=== PATIENT | male | born 1965 | race Asian ===

== ENCOUNTER → 2019-07-27 | Outpatient (CLI) | payer OTHER ==
[2019-07-27 12:31] LABS: INR 3.2; PROTHROMBIN TIME 32.7 SECONDS (11.8-14.0)
== END ==
LOC: M WUC 09:29
DX: Z95.2 Presence of prosthetic heart valve (principal)

== ENCOUNTER → 2019-08-25 | Outpatient (CLI) | payer OTHER ==
[2019-08-25 12:47] LABS: INR 3.08; PROTHROMBIN TIME 31.7 SECONDS (11.8-14.0)
== END ==
LOC: M WUC 09:33
PROVIDERS: ATTEND Student in an Organized Health Care Education/Training Program
DX: Z95.2 Presence of prosthetic heart valve (principal)

== ENCOUNTER → 2019-09-26 | Outpatient (CLI) | payer OTHER ==
[2019-09-26 10:40] LABS: INR 2.97; PROTHROMBIN TIME 30.8 SECONDS (11.8-14.0)
== END ==
LOC: M WUC 08:05
PROVIDERS: ATTEND Student in an Organized Health Care Education/Training Program
DX: Z95.2 Presence of prosthetic heart valve (principal)

== ENCOUNTER → 2019-10-27 | Outpatient (CLI) | payer OTHER ==
[2019-10-27 09:46] LABS: INR 3.54; PROTHROMBIN TIME 35.5 SECONDS (11.8-14.0)
== END ==
LOC: M WUC 08:21
PROVIDERS: ATTEND Student in an Organized Health Care Education/Training Program
DX: Z95.2 Presence of prosthetic heart valve (principal)

== ENCOUNTER → 2019-11-23 | Outpatient (CLI) | payer OTHER ==
[2019-11-23 10:46] LABS: INR 3.24; PROTHROMBIN TIME 33.8 SECONDS (11.8-14.0)
== END ==
LOC: M WUC 08:24
PROVIDERS: ATTEND Student in an Organized Health Care Education/Training Program
DX: Z95.2 Presence of prosthetic heart valve (principal)

== ENCOUNTER → 2019-12-25 | Outpatient (CLI) | payer OTHER ==
[2019-12-25 15:00] LABS: INR 3.27
== END ==
LOC: M WUC 09:03
PROVIDERS: ATTEND Student in an Organized Health Care Education/Training Program
DX: Z95.2 Presence of prosthetic heart valve (principal)

== ENCOUNTER → 2020-01-23 | Outpatient (CLI) | payer OTHER ==
[2020-01-23 14:38] LABS: INR 3.29; PROTHROMBIN TIME 34.2 SECONDS (12.5-14.3)
== END ==
LOC: M WUC 09:12
PROVIDERS: ATTEND Student in an Organized Health Care Education/Training Program
DX: Z95.2 Presence of prosthetic heart valve (principal)

== ENCOUNTER → 2020-02-27 | Outpatient (CLI) | payer OTHER ==
[2020-02-27 10:26] LABS: INR 2.38; PROTHROMBIN TIME 26.5 SECONDS (12.5-14.3)
== END ==
LOC: M WUC 08:28
PROVIDERS: ATTEND Student in an Organized Health Care Education/Training Program
DX: Z95.2 Presence of prosthetic heart valve (principal)

== ENCOUNTER → 2020-03-06 | Outpatient (CLI) | payer OTHER ==
[2020-03-06 16:53] LABS: INR 2.71; PROTHROMBIN TIME 29.4 SECONDS (12.5-14.3)
== END ==
LOC: M WUC 11:52
PROVIDERS: ATTEND Student in an Organized Health Care Education/Training Program
DX: Z95.2 Presence of prosthetic heart valve (principal)

== ENCOUNTER → 2020-04-23 | Outpatient (CLI) | payer OTHER ==
[2020-04-23 12:26] LABS: INR 2.93; PROTHROMBIN TIME 31.3 SECONDS (12.5-14.3)
== END ==
LOC: M WUC 09:28
PROVIDERS: ATTEND Student in an Organized Health Care Education/Training Program
DX: Z95.2 Presence of prosthetic heart valve (principal)

== ENCOUNTER → 2020-05-24 | Outpatient (CLI) | payer OTHER ==
[2020-05-24 10:46] LABS: INR 2.56; PROTHROMBIN TIME 28.1 SECONDS (12.5-14.3)
== END ==
LOC: M WUC 08:36
PROVIDERS: ATTEND Student in an Organized Health Care Education/Training Program
DX: Z95.2 Presence of prosthetic heart valve (principal)

== ENCOUNTER → 2020-06-21 | Outpatient (CLI) | payer OTHER ==
[2020-06-21 12:03] LABS: INR 3.19; PROTHROMBIN TIME 33.4 SECONDS (12.5-14.3)
== END ==
LOC: M WUC 08:56
PROVIDERS: ATTEND Student in an Organized Health Care Education/Training Program
DX: Z95.2 Presence of prosthetic heart valve (principal)

== ENCOUNTER → 2020-07-19 | Outpatient (CLI) | payer OTHER ==
[2020-07-19 14:29] LABS: INR 3.21; PROTHROMBIN TIME 33.6 SECONDS (12.5-14.3)
== END ==
LOC: M WUC 08:59
PROVIDERS: ATTEND Student in an Organized Health Care Education/Training Program
DX: Z51.81 Encounter for therapeutic drug level monitoring (principal); Z95.2 Presence of prosthetic heart valve

== ENCOUNTER → 2020-08-20 | Outpatient (REF) | payer OTHER ==
[2020-08-20 11:59] LABS: INR 2.96; PROTHROMBIN TIME 31.5 SECONDS (12.5-14.3)
== END ==
LOC: M LAB REF 11:13 → M WUC 11:13
PROVIDERS: ATTEND Student in an Organized Health Care Education/Training Program
DX: Z95.2 Presence of prosthetic heart valve (principal)

== ENCOUNTER → 2020-09-17 | Outpatient (CLI) | payer OTHER ==
[2020-09-17 11:08] LABS: INR 1.77
== END ==
LOC: M WUC 09:12
PROVIDERS: ATTEND Student in an Organized Health Care Education/Training Program
DX: Z95.2 Presence of prosthetic heart valve (principal)

== ENCOUNTER → 2020-09-25 | Outpatient (CLI) | payer OTHER ==
[2020-09-25 11:57] LABS: INR 3.1; PROTHROMBIN TIME 32.7 SECONDS (12.5-14.3)
== END ==
LOC: M WUC 09:04
PROVIDERS: ATTEND Student in an Organized Health Care Education/Training Program
DX: Z95.2 Presence of prosthetic heart valve (principal)

== ENCOUNTER → 2020-10-10 | Outpatient (CLI) | payer OTHER ==
[2020-10-10 10:05] LABS: PROTHROMBIN TIME 31.8 SECONDS (12.5-14.3)
== END ==
LOC: M WUC 08:07
PROVIDERS: ATTEND Student in an Organized Health Care Education/Training Program
DX: Z95.2 Presence of prosthetic heart valve (principal)

== ENCOUNTER → 2020-11-06 | Outpatient (CLI) | payer OTHER ==
[2020-11-06 13:37] LABS: INR 2.83; PROTHROMBIN TIME 30.1 SECONDS (12.7-14.5)
== END ==
LOC: M WUC 09:19
PROVIDERS: ATTEND Student in an Organized Health Care Education/Training Program
DX: Z95.2 Presence of prosthetic heart valve (principal)

== ENCOUNTER → 2020-12-04 | Outpatient (CLI) | payer OTHER ==
[2020-12-04 12:34] LABS: INR 4.06; PROTHROMBIN TIME 39.7 SECONDS (12.7-14.5)
== END ==
LOC: M WUC 08:58
PROVIDERS: ATTEND Student in an Organized Health Care Education/Training Program
DX: Z95.2 Presence of prosthetic heart valve (principal)

== ENCOUNTER → 2020-12-07 | Outpatient (CLI) | payer OTHER ==
[2020-12-07 11:32] LABS: INR 4.85; PROTHROMBIN TIME 45.4 SECONDS (12.7-14.5)
== END ==
LOC: M WUC 09:12
PROVIDERS: ATTEND Student in an Organized Health Care Education/Training Program
DX: Z95.2 Presence of prosthetic heart valve (principal)

== ENCOUNTER → 2020-12-13 | Outpatient (CLI) | payer OTHER ==
[2020-12-13 11:52] LABS: INR 2.75; PROTHROMBIN TIME 29.4 SECONDS (12.7-14.5)
== END ==
LOC: M WUC 08:45
PROVIDERS: ATTEND Student in an Organized Health Care Education/Training Program
DX: Z95.2 Presence of prosthetic heart valve (principal)

== ENCOUNTER → 2020-12-27 | Outpatient (REF) | payer OTHER ==
[2020-12-27 12:58] LABS: INR 2.9; PROTHROMBIN TIME 30.6 SECONDS (12.7-14.5)
== END ==
LOC: M WUC 11:55
PROVIDERS: ATTEND Student in an Organized Health Care Education/Training Program
DX: Z95.2 Presence of prosthetic heart valve (principal)

== ENCOUNTER → 2021-01-24 | Outpatient (CLI) | payer OTHER ==
[2021-01-24 11:29] LABS: INR 2.85; PROTHROMBIN TIME 30.3 SECONDS (12.7-14.5)
== END ==
LOC: M WUC 09:19
PROVIDERS: ATTEND Student in an Organized Health Care Education/Training Program
DX: Z95.2 Presence of prosthetic heart valve (principal)

== ENCOUNTER → 2021-02-21 | Outpatient (CLI) | payer OTHER ==
[2021-02-21 11:02] LABS: INR 3.26; PROTHROMBIN TIME 33.6 SECONDS (12.7-14.5)
== END ==
LOC: M WUC 09:18
PROVIDERS: ATTEND Student in an Organized Health Care Education/Training Program
DX: Z95.2 Presence of prosthetic heart valve (principal)

== ENCOUNTER → 2021-03-19 | Outpatient (CLI) | payer OTHER ==
[2021-03-19 12:27] LABS: INR 3.06; PROTHROMBIN TIME 31.9 SECONDS (12.7-14.5)
== END ==
LOC: M WUC 09:18
PROVIDERS: ATTEND Student in an Organized Health Care Education/Training Program
DX: Z95.2 Presence of prosthetic heart valve (principal)

== ENCOUNTER → 2021-04-16 | Outpatient (CLI) | payer OTHER ==
[2021-04-16 17:09] LABS: INR 2.41; PROTHROMBIN TIME 26.6 SECONDS (12.7-14.5)
== END ==
LOC: M WUC 13:22
DX: Z95.2 Presence of prosthetic heart valve (principal)

== ENCOUNTER → 2021-05-02 | Outpatient (CLI) | payer OTHER ==
[2021-05-02 11:53] LABS: INR 3.27; PROTHROMBIN TIME 33.6 SECONDS (12.7-14.5)
== END ==
LOC: M WUC 09:03
PROVIDERS: ATTEND Internal Medicine
DX: Z95.2 Presence of prosthetic heart valve (principal)

== ENCOUNTER → 2021-06-27 | Outpatient (CLI) | payer OTHER ==
[2021-06-27 13:04] LABS: INR 2.6; PROTHROMBIN TIME 28.2 SECONDS (12.7-14.5)
== END ==
LOC: M WUC 09:40
PROVIDERS: ATTEND Internal Medicine
DX: Z95.2 Presence of prosthetic heart valve (principal)

== ENCOUNTER → 2021-07-25 | Outpatient (CLI) | payer OTHER ==
[2021-07-25 12:46] LABS: INR 2.24; PROTHROMBIN TIME 25.2 SECONDS (12.7-14.5)
== END ==
LOC: M WUC 09:20
PROVIDERS: ATTEND Internal Medicine
DX: Z95.2 Presence of prosthetic heart valve (principal)

== ENCOUNTER → 2021-08-01 | Outpatient (CLI) | payer OTHER ==
[2021-08-01 12:55] LABS: INR 2.98; PROTHROMBIN TIME 31.3 SECONDS (12.7-14.5)
== END ==
LOC: M WUC 09:55
PROVIDERS: ATTEND Internal Medicine
DX: Z95.2 Presence of prosthetic heart valve (principal)

== ENCOUNTER → 2021-08-15 | Outpatient (CLI) | payer OTHER ==
[2021-08-15 10:27] LABS: INR 2.58
== END ==
LOC: M WUC 08:55
PROVIDERS: ATTEND Internal Medicine
DX: Z95.2 Presence of prosthetic heart valve (principal)

== ENCOUNTER → 2021-09-11 | Outpatient (CLI) | payer OTHER ==
[2021-09-11 10:05] LABS: INR 2.82
== END ==
LOC: M WUC 08:14
PROVIDERS: ATTEND Internal Medicine
DX: Z95.2 Presence of prosthetic heart valve (principal)

== ENCOUNTER → 2021-10-09 | Outpatient (CLI) | payer OTHER ==
[2021-10-09 12:52] LABS: INR 3.03; PROTHROMBIN TIME 31.7 SECONDS (12.7-14.5)
== END ==
LOC: M WUC 08:51
PROVIDERS: ATTEND Internal Medicine
DX: Z95.2 Presence of prosthetic heart valve (principal)

== ENCOUNTER → 2021-11-06 | Outpatient (CLI) | payer OTHER ==
[2021-11-06 10:47] LABS: INR 3.57
== END ==
LOC: M WUC 08:28
PROVIDERS: ATTEND Internal Medicine
DX: Z95.2 Presence of prosthetic heart valve (principal)

== ENCOUNTER → 2021-12-04 | Outpatient (CLI) | payer OTHER ==
[2021-12-04 13:43] LABS: PROTHROMBIN TIME 49.1 SECONDS (12.7-14.5)
[2021-12-04 15:43] LABS: INR 5.38
== END ==
LOC: M WUC 08:58
PROVIDERS: ATTEND Internal Medicine
DX: Z95.2 Presence of prosthetic heart valve (principal)

== ENCOUNTER → 2021-12-08 | Outpatient (CLI) | payer OTHER ==
[2021-12-08 11:07] LABS: INR 1.34
== END ==
LOC: M LAB 10:06
PROVIDERS: ATTEND Internal Medicine
DX: Z95.2 Presence of prosthetic heart valve (principal)

== ENCOUNTER → 2021-12-12 | Outpatient (CLI) | payer OTHER ==
[2021-12-12 13:32] LABS: INR 2.25; PROTHROMBIN TIME 25.3 SECONDS (12.7-14.5)
== END ==
LOC: M WUC 09:00
PROVIDERS: ATTEND Internal Medicine
DX: Z95.2 Presence of prosthetic heart valve (principal)

== ENCOUNTER → 2021-12-20 | Outpatient (REF) | payer OTHER ==
[2021-12-20 13:47] LABS: INR 2.73; PROTHROMBIN TIME 29.3 SECONDS (12.7-14.5)
== END ==
LOC: M LABWUC 12:12
PROVIDERS: ATTEND Internal Medicine
DX: Z95.2 Presence of prosthetic heart valve (principal)

== ENCOUNTER → 2022-01-02 | Outpatient (CLI) | payer OTHER ==
[2022-01-02 12:41] LABS: INR 2.87; PROTHROMBIN TIME 30.4 SECONDS (12.7-14.5)
== END ==
LOC: M WUC 09:23
PROVIDERS: ATTEND Internal Medicine
DX: Z95.2 Presence of prosthetic heart valve (principal)

== ENCOUNTER → 2022-01-30 | Outpatient (CLI) | payer OTHER ==
[2022-01-30 14:14] LABS: INR 3.16; PROTHROMBIN TIME 32.9 SECONDS (12.5-14.5)
== END ==
LOC: M WUC 08:52
PROVIDERS: ATTEND Internal Medicine
DX: Z95.2 Presence of prosthetic heart valve (principal)

== ENCOUNTER → 2022-02-25 | Outpatient (REF) | payer OTHER ==
[2022-02-25 12:44] LABS: INR 2.64; PROTHROMBIN TIME 28.6 SECONDS (12.5-14.5)
== END ==
LOC: M WUC 09:36
PROVIDERS: ATTEND Internal Medicine
DX: Z95.2 Presence of prosthetic heart valve (principal)

== ENCOUNTER → 2022-03-25 | Outpatient (CLI) | payer OTHER ==
[2022-03-25 13:09] LABS: INR 3.52; PROTHROMBIN TIME 35.8 SECONDS (12.5-14.5)
== END ==
LOC: M WUC 09:25
PROVIDERS: ATTEND Internal Medicine
DX: Z95.2 Presence of prosthetic heart valve (principal)

== ENCOUNTER → 2022-04-22 | Outpatient (CLI) | payer OTHER ==
[2022-04-22 13:29] LABS: INR 3.11; PROTHROMBIN TIME 32.5 SECONDS (12.5-14.5)
== END ==
LOC: M WUC 09:06
PROVIDERS: ATTEND Internal Medicine
DX: Z95.2 Presence of prosthetic heart valve (principal)

== ENCOUNTER → 2022-05-20 | Outpatient (CLI) | payer OTHER ==
[2022-05-20 13:31] LABS: INR 2.59; PROTHROMBIN TIME 28.2 SECONDS (12.5-14.5)
== END ==
LOC: M WUC 09:24
PROVIDERS: ATTEND Internal Medicine
DX: Z95.2 Presence of prosthetic heart valve (principal)

== ENCOUNTER → 2022-06-17 | Outpatient (REF) | payer OTHER ==
[2022-06-17 17:10] LABS: INR 2.38; PROTHROMBIN TIME 26.4 SECONDS (12.5-14.5)
== END ==
LOC: M LAB REF 16:12
PROVIDERS: ATTEND Internal Medicine
DX: Z95.2 Presence of prosthetic heart valve (principal)

== ENCOUNTER → 2022-06-24 | Outpatient (CLI) | payer OTHER ==
[2022-06-24 12:52] LABS: INR 2.19; PROTHROMBIN TIME 24.7 SECONDS (12.5-14.5)
== END ==
LOC: M WUC 09:03
PROVIDERS: ATTEND Internal Medicine
DX: Z95.2 Presence of prosthetic heart valve (principal)

== ENCOUNTER → 2022-07-01 | Outpatient (CLI) | payer OTHER ==
[2022-07-01 13:22] LABS: INR 3.01; PROTHROMBIN TIME 31.7 SECONDS (12.5-14.5)
== END ==
LOC: M WUC 10:26
PROVIDERS: ATTEND Internal Medicine
DX: Z95.2 Presence of prosthetic heart valve (principal)

== ENCOUNTER → 2022-07-09 | Outpatient (CLI) | payer OTHER ==
[2022-07-09 17:28] LABS: INR 3.15; PROTHROMBIN TIME 32.8 SECONDS (12.5-14.5)
== END ==
LOC: M WUC 11:53
PROVIDERS: ATTEND Internal Medicine
DX: Z95.2 Presence of prosthetic heart valve (principal)

== ENCOUNTER → 2022-07-31 | Outpatient (REF) | payer OTHER ==
[2022-07-31 10:20] LABS: INR 2.77; PROTHROMBIN TIME 29.7 SECONDS (12.5-14.5)
== END ==
LOC: M LABWUC 09:41
PROVIDERS: ATTEND Internal Medicine
DX: Z95.2 Presence of prosthetic heart valve (principal)

== ENCOUNTER → 2022-08-28 | Outpatient (REF) | payer OTHER ==
[2022-08-28 13:30] LABS: INR 2.43; PROTHROMBIN TIME 26.8 SECONDS (12.5-14.5)
== END ==
LOC: M LABWUC 12:57
PROVIDERS: ATTEND Internal Medicine
DX: Z95.2 Presence of prosthetic heart valve (principal)

== ENCOUNTER → 2022-09-04 | Outpatient (CLI) | payer OTHER ==
[2022-09-04 12:44] LABS: INR 2.69
== END ==
LOC: M WUC 08:53
PROVIDERS: ATTEND Internal Medicine
DX: Z95.2 Presence of prosthetic heart valve (principal)

== ENCOUNTER → 2022-09-18 | Outpatient (CLI) | payer OTHER ==
[2022-09-18 11:58] LABS: INR 2.87; PROTHROMBIN TIME 30.5 SECONDS (12.5-14.5)
== END ==
LOC: M WUC 09:37
PROVIDERS: ATTEND Internal Medicine
DX: Z95.2 Presence of prosthetic heart valve (principal)

== ENCOUNTER → 2022-10-16 | Outpatient (CLI) | payer OTHER ==
[2022-10-16 11:07] LABS: INR 3.62; PROTHROMBIN TIME 36.6 SECONDS (12.5-14.5)
== END ==
LOC: M WUC 08:31
PROVIDERS: ATTEND Internal Medicine
DX: Z95.2 Presence of prosthetic heart valve (principal)

== ENCOUNTER → 2022-11-20 | Outpatient (REF) | payer OTHER ==
[2022-11-20 13:21] LABS: INR 3.94; PROTHROMBIN TIME 37.7 SECONDS (12.5-14.5)
== END ==
LOC: M WUC 12:15 → M LAB REF 12:15
PROVIDERS: ATTEND Internal Medicine
DX: Z95.2 Presence of prosthetic heart valve (principal)

== ENCOUNTER → 2022-11-27 | Outpatient (REF) | payer OTHER ==
[2022-11-27 11:38] LABS: INR 3.87; PROTHROMBIN TIME 37.1 SECONDS (12.5-14.5)
== END ==
LOC: M WUC 11:04
PROVIDERS: ATTEND Internal Medicine
DX: Z95.2 Presence of prosthetic heart valve (principal)

== ENCOUNTER → 2022-12-04 | Outpatient (REF) | payer OTHER ==
[2022-12-04 11:36] LABS: INR 2.7
== END ==
LOC: M LABWUC 09:59
PROVIDERS: ATTEND Internal Medicine
DX: Z95.2 Presence of prosthetic heart valve (principal)

== ENCOUNTER → 2022-12-11 | Outpatient (CLI) | payer OTHER ==
[2022-12-11 13:08] LABS: INR 2.95
== END ==
LOC: M WUC 08:54
PROVIDERS: ATTEND Internal Medicine
DX: Z95.2 Presence of prosthetic heart valve (principal)

== ENCOUNTER → 2022-12-25 | Outpatient (REF) | payer OTHER ==
[2022-12-25 12:34] LABS: INR 3.31; PROTHROMBIN TIME 32.8 SECONDS (12.5-14.5)
== END ==
LOC: M LABWUC 11:31
PROVIDERS: ATTEND Internal Medicine
DX: Z95.2 Presence of prosthetic heart valve (principal)

== ENCOUNTER → 2023-01-22 | Outpatient (REF) | payer OTHER ==
[2023-01-22 14:55] LABS: INR 3.77; PROTHROMBIN TIME 36.4 SECONDS (12.5-14.5)
== END ==
LOC: M LABWUC 13:14
PROVIDERS: ATTEND Internal Medicine
DX: Z95.2 Presence of prosthetic heart valve (principal)

== ENCOUNTER → 2023-01-29 | Outpatient (REF) | payer OTHER ==
[2023-01-29 12:59] LABS: INR 2.45
== END ==
LOC: M WUC 10:41
PROVIDERS: ATTEND Internal Medicine
DX: Z95.2 Presence of prosthetic heart valve (principal)

== ENCOUNTER → 2023-02-09 | Outpatient (REF) | payer OTHER ==
[2023-02-09 12:38] LABS: INR 2.98; PROTHROMBIN TIME 29.9 SECONDS (12.5-14.5)
== END ==
LOC: M WUC 11:43
PROVIDERS: ATTEND Internal Medicine
DX: Z95.2 Presence of prosthetic heart valve (principal)

== ENCOUNTER → 2023-02-24 | Outpatient (REF) | payer OTHER ==
[2023-02-24 16:13] LABS: INR 2.29; PROTHROMBIN TIME 24.4 SECONDS (12.5-14.5)
== END ==
LOC: M WUC 15:26
PROVIDERS: ATTEND Internal Medicine
DX: Z95.2 Presence of prosthetic heart valve (principal)

== ENCOUNTER → 2023-03-10 | Outpatient (REF) | payer OTHER ==
[2023-03-10 17:12] LABS: INR 3.27; PROTHROMBIN TIME 32.1 SECONDS (12.5-14.5)
== END ==
LOC: M LABWUC 16:23
PROVIDERS: ATTEND Student in an Organized Health Care Education/Training Program
DX: Z95.2 Presence of prosthetic heart valve (principal)

== ENCOUNTER → 2023-03-26 | Outpatient (REF) | payer OTHER ==
[2023-03-26 13:30] LABS: INR 3.71; PROTHROMBIN TIME 35.3 SECONDS (12.5-14.5)
== END ==
LOC: M LABWUC 12:11
PROVIDERS: ATTEND Student in an Organized Health Care Education/Training Program
DX: Z95.2 Presence of prosthetic heart valve (principal)

== ENCOUNTER → 2023-04-23 | Outpatient (REF) | payer OTHER ==
[2023-04-23 12:43] LABS: INR 3.7; PROTHROMBIN TIME 35.3 SECONDS (12.5-14.5)
== END ==
LOC: M LABWUC 11:55
PROVIDERS: ATTEND Student in an Organized Health Care Education/Training Program
DX: Z95.2 Presence of prosthetic heart valve (principal)

== ENCOUNTER → 2023-05-07 | Outpatient (REF) | payer OTHER ==
[2023-05-07 13:32] LABS: INR 2.17; PROTHROMBIN TIME 23.4 SECONDS (12.5-14.5)
== END ==
LOC: M LABWUC 11:52
PROVIDERS: ATTEND Student in an Organized Health Care Education/Training Program
DX: Z95.2 Presence of prosthetic heart valve (principal)

== ENCOUNTER → 2023-05-14 | Outpatient (REF) | payer OTHER ==
[2023-05-14 11:54] LABS: INR 3.95; PROTHROMBIN TIME 37.1 SECONDS (12.5-14.5)
== END ==
LOC: M LABWUC 11:06
PROVIDERS: ATTEND Student in an Organized Health Care Education/Training Program
DX: Z95.2 Presence of prosthetic heart valve (principal)

== ENCOUNTER → 2023-05-21 | Outpatient (REF) | payer OTHER ==
[2023-05-21 11:50] LABS: INR 3.12
== END ==
LOC: M LABWUC 11:11
PROVIDERS: ATTEND Student in an Organized Health Care Education/Training Program
DX: Z95.2 Presence of prosthetic heart valve (principal); Z48.812 Encounter for surgical aftercare following surgery on the circulatory system

== ENCOUNTER → 2023-06-23 | Outpatient (REF) | payer OTHER ==
[2023-06-23 16:42] LABS: INR 4.11; PROTHROMBIN TIME 38.3 SECONDS (12.5-14.5)
== END ==
LOC: M LABWUC 16:06
PROVIDERS: ATTEND Student in an Organized Health Care Education/Training Program
DX: Z95.2 Presence of prosthetic heart valve (principal)

== ENCOUNTER → 2023-06-30 | Outpatient (REF) | payer OTHER ==
[2023-06-30 15:27] LABS: INR 2.12
== END ==
LOC: M LABWUC 14:45
PROVIDERS: ATTEND Student in an Organized Health Care Education/Training Program
DX: Z95.2 Presence of prosthetic heart valve (principal)

== ENCOUNTER → 2023-07-03 | Outpatient (REF) | payer OTHER ==
[2023-07-03 12:50] LABS: INR 2.47; PROTHROMBIN TIME 25.9 SECONDS (12.5-14.5)
== END ==
LOC: M LABWUC 11:45 → M SHH 11:45
PROVIDERS: ATTEND Student in an Organized Health Care Education/Training Program
DX: Z95.2 Presence of prosthetic heart valve (principal)

== ENCOUNTER → 2023-08-05 | Outpatient (REF) | payer OTHER ==
[2023-08-05 11:08] LABS: INR 2.86; PROTHROMBIN TIME 28.9 SECONDS (12.5-14.5)
== END ==
LOC: M LABWUC 10:14
PROVIDERS: ATTEND Student in an Organized Health Care Education/Training Program
DX: Z95.2 Presence of prosthetic heart valve (principal)

== ENCOUNTER → 2023-08-18 | Outpatient (REF) | payer OTHER ==
[2023-08-18 17:18] LABS: INR 4.36
== END ==
LOC: M LABWUC 16:25
PROVIDERS: ATTEND Student in an Organized Health Care Education/Training Program
DX: Z95.2 Presence of prosthetic heart valve (principal)

== ENCOUNTER → 2023-08-25 | Outpatient (REF) | payer OTHER ==
[2023-08-25 13:47] LABS: INR 3.04; PROTHROMBIN TIME 30.3 SECONDS (12.5-14.5)
== END ==
LOC: M LABWUC 13:19
PROVIDERS: ATTEND Student in an Organized Health Care Education/Training Program
DX: Z95.2 Presence of prosthetic heart valve (principal)

== ENCOUNTER → 2023-09-08 | Outpatient (REF) | payer OTHER ==
[2023-09-08 12:22] LABS: INR 2.73; PROTHROMBIN TIME 27.9 SECONDS (12.5-14.5)
== END ==
LOC: M WUC 11:23
PROVIDERS: ATTEND Student in an Organized Health Care Education/Training Program
DX: Z95.2 Presence of prosthetic heart valve (principal)

== ENCOUNTER → 2023-10-06 | Outpatient (REF) | payer OTHER ==
[2023-10-06 12:03] LABS: INR 3.68; PROTHROMBIN TIME 35.1 SECONDS (12.5-14.5)
== END ==
LOC: M LABWUC 11:07
PROVIDERS: ATTEND Student in an Organized Health Care Education/Training Program
DX: Z95.2 Presence of prosthetic heart valve (principal)

== ENCOUNTER → 2023-10-12 | Outpatient (REF) | payer OTHER ==
[2023-10-12 17:12] LABS: INR 3.83; PROTHROMBIN TIME 36.3 SECONDS (12.5-14.5)
== END ==
LOC: M LABWUC 16:26
PROVIDERS: ATTEND Student in an Organized Health Care Education/Training Program
DX: Z95.2 Presence of prosthetic heart valve (principal)

== ENCOUNTER → 2023-10-19 | Outpatient (REF) | payer OTHER ==
[2023-10-19 17:30] LABS: INR 3.54; PROTHROMBIN TIME 34.1 SECONDS (12.5-14.5)
== END ==
LOC: M LABWUC 16:16
PROVIDERS: ATTEND Student in an Organized Health Care Education/Training Program
DX: I48.91 Unspecified atrial fibrillation (principal); Z95.2 Presence of prosthetic heart valve

== ENCOUNTER → 2023-11-02 | Outpatient (CLI) | payer OTHER ==
[2023-11-02 16:19] LABS: INR 3.84; PROTHROMBIN TIME 36.3 SECONDS (12.5-14.5)
== END ==
LOC: M WUC 11:26
PROVIDERS: ATTEND Student in an Organized Health Care Education/Training Program
DX: Z95.2 Presence of prosthetic heart valve (principal)

== ENCOUNTER → 2023-11-09 | Outpatient (CLI) | payer OTHER ==
[2023-11-09 12:28] LABS: INR 3.32; PROTHROMBIN TIME 32.4 SECONDS (12.5-14.5)
== END ==
LOC: M WUC 09:23
DX: Z95.2 Presence of prosthetic heart valve (principal)

== ENCOUNTER → 2023-11-24 | Outpatient (CLI) | payer OTHER ==
[2023-11-24 12:32] LABS: INR 3.2; PROTHROMBIN TIME 31.5 SECONDS (12.5-14.5)
== END ==
LOC: M LAB 11:38
PROVIDERS: ATTEND Student in an Organized Health Care Education/Training Program
DX: Z95.2 Presence of prosthetic heart valve (principal)

== ENCOUNTER → 2023-12-22 | Outpatient (CLI) | payer OTHER ==
[2023-12-22 13:03] LABS: INR 3.52; PROTHROMBIN TIME 33.9 SECONDS (12.5-14.5)
== END ==
LOC: M WUC 09:15
PROVIDERS: ATTEND Student in an Organized Health Care Education/Training Program
DX: Z95.2 Presence of prosthetic heart valve (principal)

== ENCOUNTER 2023-12-31 12:02 | Emergency (ER) | payer OTHER, SELFPAY ==
[~2023-12-31] VITALS: Ht 177.8 cm; Wt 68.8 kg
[2023-12-31] MEDS ORDERED: WARF4TAB52 PO (12:28)
[2023-12-31 17:12] LABS: BASO # 0.1 10^3/uL (0.0-0.2); BASO % 0.9 % (0.0-1.0); EOS # 0.1 10^3/uL (0.0-0.5); EOS % 1.6 % (0.0-3.0); HEMATOCRIT 46.9 % (42.0-52.0); HEMOGLOBIN 15.1 g/dl (13.5-17.5); LYMPH % 17.9 % (24.0-44.0); MEAN CORPUSCULAR HEMOGLOBIN 30.3 pg (27.0-33.0); MEAN CORPUSCULAR HGB CONC 32.2 g/dl (32.0-36.5); MEAN CORPUSCULAR VOLUME 94.2 fl (80.0-96.0); MONO # 0.7 10^3/uL (0.0-0.8); MONO % 12.6 % (2.0-8.0); NEUTROPHILS # 3.9 10^3/uL (1.5-8.5); NEUTROPHILS % 66.5 % (36.0-66.0); PLATELET COUNT, AUTOMATED 193 10^3/uL (150-450); RED BLOOD COUNT 4.98 10^6/uL (4.30-6.10); WHITE BLOOD COUNT 5.8 10^3/uL (4.0-10.0)
[2023-12-31 17:48] LABS: INR 4.65; PROTHROMBIN TIME 42.1 SECONDS (12.5-14.5)
[2023-12-31 17:51] LABS: BLOOD UREA NITROGEN 15 MG/DL (9-23); CALCIUM LEVEL 9.7 MG/DL (8.5-10.1); CARBON DIOXIDE LEVEL 29 MMOL/L (20-31); CHLORIDE LEVEL 105 MMOL/L (98-107); CREATININE FOR GFR 0.54 MG/DL (0.70-1.30); GLOMERULAR FILTRATION RATE > 60.0 (>56); GLUCOSE, FASTING 85 MG/DL (60-100); POTASSIUM SERUM 4.6 MMOL/L (3.5-5.1); SODIUM LEVEL 137 MMOL/L (136-145)
[2023-12-31 20:18] VITALS: BP 138/80; TEMP 97.1; O2SAT 96
== END 2023-12-31 20:43 | disposition home or self-care (01) ==
LOC: M ED 12:02
DX: S50.01XA Contusion of right elbow, initial encounter (principal); R79.1 Abnormal coagulation profile; Y92.9 Unspecified place or not applicable; Y93.89 Activity, other specified; Y99.9 Unspecified external cause status; Z79.01 Long term (current) use of anticoagulants

== ENCOUNTER 2024-01-02 11:38 | Emergency (ER) | payer OTHER ==
[~2024-01-02] VITALS: Ht 177.8 cm; Wt 68.2 kg
[~2024-01-02 11:38] MED LIST: WARF4TAB52 PO
[2024-01-02 11:43] VITALS: BP 149/76; TEMP 97.1; O2SAT 99
[2024-01-02 12:37] LABS: INR 2.22; PROTHROMBIN TIME 23.8 SECONDS (12.5-14.5)
== END 2024-01-02 13:23 | disposition home or self-care (01) ==
LOC: M ED 11:38
DX: R79.1 Abnormal coagulation profile (principal); I25.2 Old myocardial infarction; Z79.01 Long term (current) use of anticoagulants

== ENCOUNTER → 2024-01-19 | Outpatient (REF) | payer OTHER ==
[2024-01-19 16:46] LABS: INR 4.07
== END ==
LOC: M LABWUC 16:17
DX: Z95.2 Presence of prosthetic heart valve (principal); I48.11 Longstanding persistent atrial fibrillation

== ENCOUNTER → 2024-01-26 | Outpatient (REF) | payer OTHER ==
[2024-01-26 16:40] LABS: INR 3.38
== END ==
LOC: M SHH 16:18
PROVIDERS: ATTEND Student in an Organized Health Care Education/Training Program
DX: Z95.2 Presence of prosthetic heart valve (principal)

== ENCOUNTER → 2024-03-09 | Outpatient (REF) | payer OTHER ==
[2024-03-09 17:30] LABS: INR 3.39; PROTHROMBIN TIME 34.1 SECONDS (12.5-14.5)
== END ==
LOC: M LABWUC 16:17
PROVIDERS: ATTEND Student in an Organized Health Care Education/Training Program
DX: Z95.2 Presence of prosthetic heart valve (principal)

== ENCOUNTER → 2024-04-07 | Outpatient (REF) | payer OTHER ==
[2024-04-07 16:45] LABS: INR 3.2; PROTHROMBIN TIME 32.6 SECONDS (12.5-14.5)
== END ==
LOC: M LABWUC 16:07
PROVIDERS: ATTEND Student in an Organized Health Care Education/Training Program
DX: Z95.2 Presence of prosthetic heart valve (principal)

== ENCOUNTER → 2024-05-06 | Outpatient (REF) | payer OTHER ==
[2024-05-06 12:40] LABS: INR 3.64; PROTHROMBIN TIME 35.9 SECONDS (12.5-14.5)
== END ==
LOC: M SHH 12:21 → M LAB REF 12:21
PROVIDERS: ATTEND Student in an Organized Health Care Education/Training Program
DX: I48.91 Unspecified atrial fibrillation (principal); Z95.2 Presence of prosthetic heart valve

== ENCOUNTER 2024-05-13 13:17 | Emergency (ER) | payer OTHER ==
[~2024-05-13] VITALS: Ht 177.8 cm; Wt 71.8 kg
[2024-05-13] MEDS ORDERED: CYCL-707 PO (13:45)
[2024-05-13 16:18] LABS: BASO % 0.6 % (0.0-1.0); EOS # 0.1 10^3/uL (0.0-0.5); EOS % 2.3 % (0.0-3.0); HEMATOCRIT 45.1 % (42.0-52.0); HEMOGLOBIN 14.4 g/dl (13.5-17.5); LYMPH # 0.7 10^3/uL (1.5-5.0); LYMPH % 15.1 % (24.0-44.0); MEAN CORPUSCULAR HGB CONC 31.9 g/dl (32.0-36.5); MONO # 0.6 10^3/uL (0.0-0.8); MONO % 12.4 % (2.0-8.0); NEUTROPHILS # 3.3 10^3/uL (1.5-8.5); PLATELET COUNT, AUTOMATED 168 10^3/uL (150-450); WHITE BLOOD COUNT 4.8 10^3/uL (4.0-10.0)
[2024-05-13 16:36] LABS: INR 2.35; PARTIAL THROMBOPLASTIN TIME 48.7 SECONDS (24.8-34.2); PROTHROMBIN TIME 25.8 SECONDS (12.5-14.5)
[2024-05-13 16:59] LABS: BLOOD UREA NITROGEN 16 MG/DL (9-23); CALCIUM LEVEL 9.3 MG/DL (8.5-10.1); CARBON DIOXIDE LEVEL 29 MMOL/L (20-31); CHLORIDE LEVEL 103 MMOL/L (98-107); CREATININE FOR GFR 0.52 MG/DL (0.70-1.30); GLOMERULAR FILTRATION RATE > 60.0 (>56); GLUCOSE, FASTING 102 MG/DL (60-100); POTASSIUM SERUM 4.6 MMOL/L (3.5-5.1); SODIUM LEVEL 139 MMOL/L (136-145)
[2024-05-13] MEDS ORDERED: ACET-716 PO (17:56)
[2024-05-13 18:12] VITALS: BP 144/71; TEMP 97; O2SAT 98
== END 2024-05-13 18:16 | disposition home or self-care (01) ==
LOC: M ED 13:17
DX: S70.12XA Contusion of left thigh, initial encounter (principal); W22.8XXA Striking against or struck by other objects, initial encounter; Y92.009 Unspecified place in unspecified non-institutional (private) residence as the place of occurrence of the external cause; Y93.9 Activity, unspecified; Y99.9 Unspecified external cause status; Z79.01 Long term (current) use of anticoagulants

== ENCOUNTER → 2024-05-16 | Outpatient (REF) | payer OTHER ==
[~2024-05-16] MED LIST changes: +ACET-716 PO; +CYCL-707 PO
[2024-05-16 16:40] LABS: INR 2.64; PROTHROMBIN TIME 28.2 SECONDS (12.5-14.5)
== END ==
LOC: M LABWUC 16:11
PROVIDERS: ATTEND Student in an Organized Health Care Education/Training Program
DX: Z95.2 Presence of prosthetic heart valve (principal); Z79.01 Long term (current) use of anticoagulants

== ENCOUNTER → 2024-05-30 | Outpatient (REF) | payer OTHER ==
[2024-05-30 16:25] LABS: INR 2.46; PROTHROMBIN TIME 26.7 SECONDS (12.5-14.5)
== END ==
LOC: M SHH 16:03
PROVIDERS: ATTEND Student in an Organized Health Care Education/Training Program
DX: Z95.2 Presence of prosthetic heart valve (principal)

== ENCOUNTER → 2024-06-27 | Outpatient (REF) | payer OTHER ==
[2024-06-27 14:25] LABS: INR 3.74; PROTHROMBIN TIME 36.7 SECONDS (12.5-14.5)
== END ==
LOC: M LABWUC 14:07
PROVIDERS: ATTEND Student in an Organized Health Care Education/Training Program
DX: Z95.2 Presence of prosthetic heart valve (principal); I48.11 Longstanding persistent atrial fibrillation

== ENCOUNTER → 2024-07-04 | Outpatient (CLI) | payer OTHER ==
[2024-07-04 12:19] LABS: INR 2.36; PROTHROMBIN TIME 25.9 SECONDS (12.5-14.5)
== END ==
LOC: M WUC 09:29
PROVIDERS: ATTEND Student in an Organized Health Care Education/Training Program
DX: Z95.2 Presence of prosthetic heart valve (principal); I48.11 Longstanding persistent atrial fibrillation

== ENCOUNTER → 2024-07-11 | Outpatient (REF) | payer OTHER ==
[2024-07-11 12:23] LABS: INR 3.99; PROTHROMBIN TIME 38.5 SECONDS (12.5-14.5)
== END ==
LOC: M LABWUC 11:57
PROVIDERS: ATTEND Student in an Organized Health Care Education/Training Program
DX: I48.11 Longstanding persistent atrial fibrillation (principal); Z95.2 Presence of prosthetic heart valve

== ENCOUNTER → 2024-07-18 | Outpatient (REF) | payer OTHER ==
[2024-07-18 14:15] LABS: INR 2.49; PROTHROMBIN TIME 26.9 SECONDS (12.5-14.5)
== END ==
LOC: M LABWUC 13:55
PROVIDERS: ATTEND Student in an Organized Health Care Education/Training Program
DX: I48.11 Longstanding persistent atrial fibrillation (principal); Z95.2 Presence of prosthetic heart valve

== ENCOUNTER → 2024-08-01 | Outpatient (REF) | payer OTHER ==
[2024-08-01 12:39] LABS: INR 4.04; PROTHROMBIN TIME 38.9 SECONDS (12.5-14.5)
== END ==
LOC: M LABWUC 12:15
PROVIDERS: ATTEND Student in an Organized Health Care Education/Training Program
DX: Z95.2 Presence of prosthetic heart valve (principal)

== ENCOUNTER → 2024-08-08 | Outpatient (REF) | payer OTHER ==
[2024-08-08 15:00] LABS: INR 3.8; PROTHROMBIN TIME 37.1 SECONDS (12.5-14.5)
== END ==
LOC: M LABWUC 14:11
PROVIDERS: ATTEND Student in an Organized Health Care Education/Training Program
DX: Z95.2 Presence of prosthetic heart valve (principal)

== ENCOUNTER → 2024-08-15 | Outpatient (REF) | payer OTHER ==
[2024-08-15 13:58] LABS: INR 3.09; PROTHROMBIN TIME 31.7 SECONDS (12.5-14.5)
== END ==
LOC: M LABWUC 13:35
PROVIDERS: ATTEND Student in an Organized Health Care Education/Training Program
DX: Z79.01 Long term (current) use of anticoagulants (principal)

== ENCOUNTER → 2024-10-25 | Outpatient (REF) | payer OTHER ==
[2024-10-25 13:48] LABS: INR 3.88
== END ==
LOC: M LABWUC 13:21
PROVIDERS: ATTEND Student in an Organized Health Care Education/Training Program
DX: Z95.2 Presence of prosthetic heart valve (principal); I48.11 Longstanding persistent atrial fibrillation

== ENCOUNTER → 2024-11-02 | Outpatient (REF) | payer OTHER ==
[2024-11-02 12:34] LABS: INR 3.52
== END ==
LOC: M LABWUC 12:04
PROVIDERS: ATTEND Student in an Organized Health Care Education/Training Program
DX: I48.11 Longstanding persistent atrial fibrillation (principal); Z95.2 Presence of prosthetic heart valve

== ENCOUNTER → 2024-11-16 | Outpatient (REF) | payer OTHER ==
[2024-11-16 12:07] LABS: INR 3.39
== END ==
LOC: M LABWUC 11:49
PROVIDERS: ATTEND Student in an Organized Health Care Education/Training Program
DX: I48.11 Longstanding persistent atrial fibrillation (principal); Z95.2 Presence of prosthetic heart valve

== ENCOUNTER → 2024-12-13 | Outpatient (REF) | payer OTHER ==
[2024-12-13 12:48] LABS: INR 3.34
== END ==
LOC: M LAB REF 09:18
PROVIDERS: ATTEND Student in an Organized Health Care Education/Training Program
DX: Z95.2 Presence of prosthetic heart valve (principal); I48.11 Longstanding persistent atrial fibrillation

== ENCOUNTER → 2025-01-10 | Outpatient (REF) | payer OTHER ==
[2025-01-10 12:53] LABS: INR 4.38
== END ==
LOC: M LABWUC 12:11
PROVIDERS: ATTEND Student in an Organized Health Care Education/Training Program
DX: I48.11 Longstanding persistent atrial fibrillation (principal); Z95.2 Presence of prosthetic heart valve

== ENCOUNTER → 2025-01-16 | Outpatient (REF) | payer OTHER ==
[2025-01-16 14:36] LABS: INR 3.43
== END ==
LOC: M LABWUC 14:17
PROVIDERS: ATTEND Student in an Organized Health Care Education/Training Program
DX: I48.11 Longstanding persistent atrial fibrillation (principal); Z95.2 Presence of prosthetic heart valve

== ENCOUNTER → 2025-01-30 | Outpatient (REF) | payer OTHER ==
[2025-01-30 14:36] LABS: INR 2.66
== END ==
LOC: M LABWUC 14:06
PROVIDERS: ATTEND Student in an Organized Health Care Education/Training Program
DX: I48.11 Longstanding persistent atrial fibrillation (principal); Z95.2 Presence of prosthetic heart valve

== ENCOUNTER → 2025-02-20 | Outpatient (REF) | payer OTHER ==
[2025-02-20 15:00] LABS: INR 2.81
== END ==
LOC: M LABWUC 14:31
PROVIDERS: ATTEND Student in an Organized Health Care Education/Training Program
DX: I48.11 Longstanding persistent atrial fibrillation (principal); Z95.2 Presence of prosthetic heart valve

== ENCOUNTER → 2025-03-20 | Outpatient (REF) | payer OTHER ==
[2025-03-20 14:44] LABS: INR 2.3
== END ==
LOC: M LABWUC 14:05
PROVIDERS: ATTEND Student in an Organized Health Care Education/Training Program
DX: Z95.2 Presence of prosthetic heart valve (principal); I48.11 Longstanding persistent atrial fibrillation

== ENCOUNTER → 2025-03-27 | Outpatient (CLI) | payer OTHER ==
[2025-03-27 12:29] LABS: INR 2.01
== END ==
LOC: M WUC 09:28
PROVIDERS: ATTEND Student in an Organized Health Care Education/Training Program
DX: Z95.2 Presence of prosthetic heart valve (principal)